=== PATIENT | female | born 1940 | race Caucasian/White ===

== ENCOUNTER 2022-07-14 09:46 | Outpatient (CLI) | payer MEDICARE, OTHER | END 2022-07-14 09:47 | disposition home or self-care (01) | LOC: CSHMAMMO 09:46 | PROVIDERS: ATTEND Family Medicine | DX: M81.0 Age-related osteoporosis without current pathological fracture (principal); M85.89 Other specified disorders of bone density and structure, multiple sites | CPT/HCPCS: 77080 ==